=== PATIENT | male | born 1985 | race African-American/Black ===

== ENCOUNTER 2016-11-27 14:13 | Inpatient (IN) | payer MEDICARE, OTHER ==
[~2016-11-27] VITALS: Ht 180.3 cm; Wt 52.1 kg
[~2016-11-27 14:13] MED LIST: ATOV5SUS; BACI500O9 TOP; BACT800T5 PO; LEVE500 PO; LOTR15T TOP; MIRTA15 PO; PYRI25TA11 PO; REYA300C PO; RITO100 PO; THERTAB56; TRUVTAB2 PO; VALT1TAB26 PO
[2016-11-27 14:18] VITALS: BP 125/71; PULSE 122; RESP 20; TEMP 99.6; O2SAT 94
[2016-11-27] MEDS ORDERED: SODIUM CHLOR 0.9% 1000 ML INJ 1,000 ML IV ONE (14:32)
--- NOTE | 2016-11-27 14:35 | PD ---
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 Per EMS. Concerned after initial seizure this patient is a history of these however after the second one family became concerned and called EMS. Patient was found to be post ictal and altered by paramedics. Patient reportedly had fecal and urinary incontinence with seizure. Patient continues to be altered and not answering questions. Will respond to painful stimuli and is moving all extremities. Due to patient's altered mental status H&P is very limited. PFSH Past Medical History Medical History: Unable to Obtain Arthritis: Yes Bipolar Disorder: Yes Anxiety: No Depression: No Cancer: No Cardiovascular Problems: No Endocrine: No Gastrointestinal Disorders: Yes GERD: Yes Genitourinary: No Immune Disorder: Yes (HIV) Musculoskeletal: Yes Neurologic: Yes Psychiatric: Yes Reproductive: Yes Respiratory: No Seizures: Yes Past Surgical History Surgical History: Unable to Obtain Social History Alcohol Use: No Tobacco Use: Yes Substance Use: Yes (MARIJUANA,COCAINE) Allergies-Medications (Allergen,Severity, Reaction): Coded Allergies: No Known Allergies (Unverified , 03/18/13) Reported Meds & Prescriptions Reported Meds & Active Scripts Active Reported Thera (Multiple Vitamin) Tab Bactrim DS (Sulfamethoxazole-Trimethoprim DS) 1 Tab Tab 1 Tab PO BID Atovaquone 750 Mg/5 Ml Karla Bacitracin 500 Mg/Gm Oin 1 Applic TOP BID TO AFFECTED AREA (S) Lotrisone Cream (Betamethasone/Clotrimazole) 15 Gm Cr 1 Applic TOP BID Daraprim (Pyrimethamine) 25 Mg Tab 50 Mg PO DAILY Keppra (Levetriacetam) 500 Mg Tab 500 Mg PO BID Norvir (Ritonavir) 100 Mg Cap 100 Mg PO DAILY Mirtazapine 15 Mg Tab 15 Mg PO HS Reyataz 300 mg Cap (Atazanavir) 300 Mg Cap 300 Mg PO DAILY Truvada (Emtricitabine/Tenofovir) Tab 1 Tab PO DAILY Valtrex (Valacyclovir HCl) 1 Gm Tab 1 Gm PO DAILY Review of Systems ROS Limitations: Altered Mental Status Except as stated in HPI: all other systems reviewed are Neg Physical Exam Exam Limitations: Altered Mental Status Narrative GENERAL: Well-developed, well nourished, in no acute distress, and non-ill appearing. SKIN: Focused skin assessment warm and dry. HEAD: Atraumatic. Normocephalic. EYES: Pupils equal and round and reactive to light. EOMI. No scleral icterus. No injection or drainage. ENT: No nasal bleeding or discharge. Mucous membranes pink and moist. Patient would not open his mouth, but there is no obvious bleeding from the mouth indicating a type of bleeding during the seizure. NECK: Trachea midline. No JVD. Supple. No nuclear rigidity. CARDIOVASCULAR: Regular rate and rhythm. No murmur appreciated. RESPIRATORY: No accessory muscle use. No respiratory distress. Clear to auscultation. Breath sounds equal bilaterally. GASTROINTESTINAL: Abdomen soft, non-tender, nondistended. Hepatic and splenic margins not palpable. Normal bowel sounds 4. No pulsatile mass. MUSCULOSKELETAL: No obvious deformities. No clubbing. No cyanosis. No edema. Full range of motion. NEUROLOGICAL: Awake. No obvious cranial nerve deficits. Motor grossly within normal limits. Data Data Last Documented VS Vital Signs Date Time Temp Pulse Resp B/P Pulse Ox O2 Delivery O2 Flow Rate FiO2 11/27/16 14:18 99.6 122 20 125/71 94 Orders Complete Blood Count With Diff (11/27/16 14:32) Basic Metabolic Panel (Bmp) (11/27/16 14:32) Drug Screen, Random Urine (11/27/16 14:32) Ct Brain W/O Iv Contrast(Rout) (11/27/16 ) Blood Glucose (11/27/16 14:32) Ecg Monitoring (11/27/16 14:32) Iv Access Insert/Monitor (11/27/16 14:32) Oximetry (11/27/16 14:32) Sodium Chlor 0.9% 1000 Ml Inj (Ns 1000 M (11/27/16 14:32) Sodium Chloride 0.9% Flush (Ns Flush) (11/27/16 14:45) Lorazepam Inj (Ativan Inj) (11/27/16 14:45) Vital Signs (Adult) SARAH.Q4H (11/27/16 18:25) ^ Seizure Precautions (11/27/16 18:25) Lorazepam Inj (Ativan Inj) (11/27/16 18:30) Neuro Checks . ORDERED (11/27/16 18:25) Consult Neurology (11/27/16 ) Diet Npo (11/27/16 Dinner) Sodium Chlor 0.9% 1000 Ml Inj (Ns 1000 M (11/27/16 18:30) Admit Order (Ed Use Only) (11/27/16 18:28) Labs Laboratory Tests Test 11/27/16 14:00 White Blood Count 12.3 TH/MM3 Red Blood Count 4.71 MIL/MM3 Hemoglobin 13.7 GM/DL Hematocrit 41.1 % Mean Corpuscular Volume 87.2 FL Mean Corpuscular Hemoglobin 29.2 PG Mean Corpuscular Hemoglobin 33.4 % Concent Red Cell Distribution Width 15.0 % Platelet Count 293 TH/MM3 Mean Platelet Volume 9.0 FL Neutrophils (%) (Auto) 88.7 % Lymphocytes (%) (Auto) 4.5 % Monocytes (%) (Auto) 6.6 % Eosinophils (%) (Auto) 0.1 % Basophils (%) (Auto) 0.1 % Neutrophils # (Auto) 10.9 TH/MM3 Lymphocytes # (Auto) 0.5 TH/MM3 Monocytes # (Auto) 0.8 TH/MM3 Eosinophils # (Auto) 0.0 TH/MM3 Basophils # (Auto) 0.0 TH/MM3 CBC Comment DIFF FINAL Differential Comment Sodium Level 141 MEQ/L Potassium Level 3.8 MEQ/L Chloride Level 107 MEQ/L Carbon Dioxide Level 23.3 MEQ/L Anion Gap 11 MEQ/L Blood Urea Nitrogen 7 MG/DL Creatinine 1.39 MG/DL Estimat Glomerular Filtration 73 ML/MIN Rate Random Glucose 90 MG/DL Calcium Level 9.5 MG/DL MDM Medical Decision Making Medical Screen Exam Complete: Yes Emergency Medical Condition: Yes Interpretation(s) Head CT read by the radiologist shows: No acute abnormality. Differential Diagnosis Seizure, worsening vasogenic edema, electrolyte abnormality, anemia, dehydration , other Narrative Course Patient rectal temperature found to be 99.6. Patient Is in the Mid 90s on the Monitor and Continues Moving around the bed. After examining patient, discussed patient with Dr. Webb who recommends checking CBC, BMP, CT of the head , and giving 2mg of Ativan. 1535 patient's partner now at bedside reports patient had first seizure today around 10:00 AM. States that it after the seizure he gave the patient his seizure medication and walk to the bathroom. Partner reports approximately 40 minutes later patient had a second seizure. Patient reportedly had 2 additional seizure today for a total of 4 seizures today. Partner reports patient is acting normally acts after seizure states he is moving around and not being responsive. Partner states that this typically just resolves with time. Partner was just concerned secondary to the number of seizures with patient had today and is the reason he called EMS. Denies patient falling, hitting his head, or vomiting. Reports patient has been compliant with his medication unlike last year when he had not been compliant with his medication regimen. Denies any known fevers or the patient complaining of anything out of the ordinary or acting although ordinary recently. Partner is uncertain of patient's current neurologist. 1800. Patient resting comfortably in bed sleeping. In no acute distress. Vital signs are stable. Upon awakening patient still somewhat disoriented. Discussed patient with Dr. Webb who recommends having patient admitted for intractable seizure. Call was placed to hospitalist for admission. Physician Communication Physician Communication [id number] Domingo, who is agreeable to admit the patient. Diagnosis Primary Impression: Intractable seizures Additional Impression: Altered mental status Qualified Code: R41.82 - Altered mental status, unspecified altered mental status type Admitting Information Admitting Physician Requests: Observation Condition: Stable Musa Tan November 27, 2016 14:35
[2016-11-27] MEDS ORDERED: LORazepam 2 MG/ML VIAL IVS ONE (14:45)
[2016-11-27] MEDS ORDERED: SODIUM CHLORIDE 0.9% FLUSH 10 ML FLUSH IVF PRN (14:45)
[2016-11-27 15:49] LABS: AUTOMATED NEUTROPHIL # 10.9 TH/MM3 (1.8-7.7); BASOPHIL % 0.1 % (0.0-2.0); EOSINOPHIL % 0.1 % (0.0-4.0); HEMATOCRIT 41.1 % (39.0-51.0); HEMO FLAGS DIFF FINAL; LYMPH % 4.5 % (9.0-44.0); LYMPHOCYTE # 0.5 TH/MM3 (1.0-4.8); MEAN CELL VOLUME 87.2 FL (80.0-100.0); MEAN CORPUSCULAR HEMOGLOBIN 29.2 PG (27.0-34.0); MEAN CORPUSCULAR HGB CONC 33.4 % (32.0-36.0); MONO % 6.6 % (0.0-8.0); NEUT % 88.7 % (16.0-70.0); PLATELET COUNT 293 TH/MM3 (150-450); RED BLOOD COUNT 4.71 MIL/MM3 (4.50-5.90); WHITE BLOOD COUNT 12.3 TH/MM3 (4.0-11.0)
[2016-11-27 16:28] LABS: BICARBONATE 23.3 MEQ/L (21.0-32.0); POTASSIUM 3.8 MEQ/L (3.5-5.1)
--- NOTE | 2016-11-27 17:55 | RADRPT ---
EXAM DATE/TIME: 11/27/2016 17:32 [facility] COMPARISON: CT BRAIN W/O CONTRAST, September 19, 2015, 0:25. INDICATIONS : Seizure; altered mental status. RADIATION DOSE: 56.35 CTDIvol (mGy) MEDICAL HISTORY : HIV. Seizures. SURGICAL HISTORY : None. ENCOUNTER: Initial ACUITY: 1 day PAIN SCALE: Non-responsive LOCATION: cranial TECHNIQUE: Multiple contiguous axial images were obtained of the head. Using automated exposure control and adj ustment of the mA and/or kV according to patient size, radiation dose was kept as low as reasonably a chievable to obtain optimal diagnostic quality images. FINDINGS: CEREBRUM: The ventricles are normal for age. No evidence of midline shift, mass lesion, hemorrhage or acute in farction. No extra-axial fluid collections are seen. Scattered calcifications in the sulci and adjac ent to the falx are unchanged. POSTERIOR FOSSA: The cerebellum and brainstem are intact. The 4th ventricle is midline. The cerebellopontine angle i s unremarkable. EXTRACRANIAL: The visualized portion of the orbits is intact. SKULL: The calvaria is intact. No evidence of skull fracture. CONCLUSION: No acute abnormality. Chema Archibald MD on November 27, 2016 at 17:52 Board Certified Radiologist. This report was verified electronically.
[2016-11-27 18:00] VITALS: BP 100/78; PULSE 107; RESP 15; O2SAT 100
[2016-11-27] MEDS ORDERED: LORazepam 2 MG/ML VIAL IV PUSH PRN (18:30)
[2016-11-27] MEDS ORDERED: LAMI1TAB8 PO (19:40)
[2016-11-27] MEDS ORDERED: MIRTA15 PO (19:40)
[2016-11-27] MEDS ORDERED: LEUC25TA PO (19:40)
[2016-11-27] MEDS ORDERED: ACYC800T PO (19:40)
[2016-11-27] MEDS ORDERED: KEPP10002 PO ×2 (19:40)
[2016-11-27] MEDS ORDERED: BACT800T5 PO (19:40)
[2016-11-27] MEDS ORDERED: ERGO1CAP10 PO (19:40)
[2016-11-27] MEDS ORDERED: DARU1TAB2 PO (19:40)
[2016-11-27] MEDS ORDERED: DOLU1TAB PO (19:40)
[2016-11-27 20:00] VITALS: BP 108/58; PULSE 51; RESP 16; O2SAT 97
[2016-11-27 20:17] LABS: AMPHETAMINE, URINE NEG (NEG); BARBITURATES, URINE NEG (NEG); COCAINE, URINE POS (NEG)
[2016-11-27] MEDS: SODIUM CHLOR 0.9% 1000 ML INJ 1,000 ML IV SCH (20:22)
[2016-11-27 20:55] VITALS: PULSE 51; RESP 18; TEMP 99; O2SAT 99
[2016-11-27 21:30] VITALS: BP 95/58; PULSE 58
[2016-11-27] MEDS ORDERED: LORazepam 2 MG/ML VIAL IV PUSH ONE (21:30)
[2016-11-28] VITALS (9 sets, daily range): BP systolic 105–118; BP diastolic 55–66; PULSE 52–77; RESP 16–18; TEMP 97.2–98.8; O2SAT 97–100
[2016-11-28] MEDS ORDERED: PANTOPRAZOLE SODIUM 40 MG VIAL IV PUSH ONE (03:15)
--- NOTE | 2016-11-28 03:32 | RADRPT ---
EXAM DATE/TIME: 11/28/2016 03:20 [facility] COMPARISON: No previous studies available for comparison. INDICATIONS : Fall. Right shoulder pain. MEDICAL HISTORY : None. SURGICAL HISTORY : None. ENCOUNTER: Initial ACUITY: 1 day PAIN SCORE: 9/10 LOCATION: Right scapular FINDINGS: Single reexamination demonstrates projection of the humeral head towards the lower aspect of the thania oid and possibility of anterior dislocation should be entertained. There is no fracture. CONCLUSION: Limited examination as above and anterior shoulder dislocation should be entertained clinical correla tion is recommended. Jay Richard MD on November 28, 2016 at 3:29 Board Certified Radiologist. This report was verified electronically.
[2016-11-28] MEDS: SODIUM CHLOR 0.9% 1000 ML INJ 1,000 ML IV SCH ×2 (04:05→13:03)
--- NOTE | 2016-11-28 06:29 | RADRPT ---
EXAM DATE/TIME: 11/28/2016 06:10 [facility] COMPARISON: SHOULDER RIGHT (1VW), November 28, 2016, 3:20. INDICATIONS : Right shoulder pain; dislocation. RADIATION DOSE: 12.06 CTDIvol (mGy) MEDICAL HISTORY : Seizures. Gastroesophageal reflux disease. HIV. SURGICAL HISTORY : None. ENCOUNTER: Initial ACUITY: 1 day PAIN SCALE: Non-responsive LOCATION: Right shoulder TECHNIQUE: Volumetric scanning of the shoulder was performed. Using automated exposure control and adjustment o f the mA and/or kV according to patient size, radiation dose was kept as low as reasonably achievable to obtain optimal diagnostic quality images. FINDINGS: Previously seen right anterior shoulder dislocation has been reduced. Moderate joint effusion is seen. There is a fracture of the anterior-inferior glenoid with avulsed fragments. CONCLUSION: Reduction of previously seen dislocation with fractures of the anterior-inferior glenoid with avulsed fragments. Jay Richard MD on November 28, 2016 at 6:26 Board Certified Radiologist. This report was verified electronically.
[2016-11-28] MEDS ORDERED: NALOXONE HCL 0.4 MG/ML AMP IV PRN (07:30)
[2016-11-28] MEDS ORDERED: ONDANSETRON HCL 4 MG/2 ML VIAL IVP PRN (07:30)
[2016-11-28] MEDS ORDERED: MORPHINE SULFATE 4 MG/ML INJ IV PRN (07:30)
[2016-11-28] MEDS ORDERED: ACETAMINOPHEN/HYDROcodone 325 MG/7.5 MG TAB PO PRN (07:30)
[2016-11-28] MEDS ORDERED: ACETAMINOPHEN 325 MG TAB PO PRN ×2 (07:30)
[2016-11-28] MEDS ORDERED: BISACODYL 10 MG SUPP RECTAL PRN (07:30)
[2016-11-28] MEDS ORDERED: SODIUM CHLORIDE 0.9% FLUSH 10 ML FLUSH IV FLUSH PRN (07:30)
--- NOTE | 2016-11-28 07:35 | HHI.HP ---
HPI Service [facility] Primary Care Physician Renaldo Gonzalez MD Admission Diagnosis intractable seizures, altered mental status Diagnoses: Chief Complaint: seizures Travel History International Travel<30 Days: No Contact w/Intl Traveler <30 Da: No Traveled to Known Affected Are: No History of Present Illness Written by Leta Fay, acting as scribe for Dr. Davila on 11/28/16 at 07: 44. 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 The patient is currently drowsy, extremely poor historian, only nodding yes/no to some questions, does not participate in conversation. The patient's partner is at bedside and assists with the history. He states that at baseline the patient does not communicate. Partner reports the patient has been compliant with his medications recently, however yesterday around 10 AM the patient had a seizure. He was given his morning seizure medications, and ambulated to the restroom, then 40 minutes later had a second seizure. Later on the day the patient had additional two seizures. The partner reports tonic- clonic movements. He denies any fall or hitting his head. Patient was found to have a right shoulder dislocation upon arrival. The patient's partner states this happens every time he has a seizure due to the violent shaking. The patient and the partner did not report any recent fevers, cough, or illness. The patient denies any headache, dizziness, lightheadedness, or any other medical complaints. The patient sees Dr. Gonzalez. The patient and his partner are not aware of his last CD4 count. 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 seizures Past Surgical History Lumbar puncture Reported Medications Thera (Multiple Vitamin) Tab Bactrim DS (Sulfamethoxazole-Trimethoprim DS) 1 Tab Tab 1 Tab PO BID Atovaquone 750 Mg/5 Ml Karla Bacitracin 500 Mg/Gm Oin 1 Applic TOP BID TO AFFECTED AREA (S) Lotrisone Cream (Betamethasone/Clotrimazole) 15 Gm Cr 1 Applic TOP BID Daraprim (Pyrimethamine) 25 Mg Tab 50 Mg PO DAILY Keppra (Levetriacetam) 500 Mg Tab 500 Mg PO BID Norvir (Ritonavir) 100 Mg Cap 100 Mg PO DAILY Mirtazapine 15 Mg Tab 15 Mg PO HS Reyataz 300 mg Cap (Atazanavir) 300 Mg Cap 300 Mg PO DAILY Truvada (Emtricitabine/Tenofovir) Tab 1 Tab PO DAILY Valtrex (Valacyclovir HCl) 1 Gm Tab 1 Gm PO DAILY Allergies: Coded Allergies: No Known Allergies (Unverified , 11/27/16) Active Ordered Medications Current Medications Medications (Trade) Dose Ordered Sig/Andrew Route Start Time Stop Time Status Last Admin (NS Flush) 2 ml UNSCH PRN IVF 11/27/16 14:45 11/27/16 14:54 Lorazepam 1 mg 1 mg Q15M PRN IV PUSH 11/27/16 18:30 11/28/16 04:05 (NS 1000 ml Inj) 1,000 ml @ 100 mls/hr Q10H IV 11/27/16 18:30 11/28/16 04:05 Family History Family history of hypertension and diabetes Social History Smokes tobacco 4-5 cigarettes daily Drinks alcohol occasionally Smokes marjiuana, denies any other illicit drug use although UDS +cocaine Homosexual with current partner Physical Exam Vital Signs Vital Signs Date Time Temp Pulse Resp B/P Pulse Ox O2 Delivery O2 Flow Rate FiO2 11/28/16 04:09 97.2 100 105/57 11/28/16 00:51 58 11/27/16 21:30 58 95/58 Automatic Cuff 11/27/16 20:55 99.0 51 18 99 11/27/16 20:00 51 16 108/58 97 Room Air 11/27/16 18:00 107 15 100/78 100 Room Air 11/27/16 14:18 99.6 122 20 125/71 94 Physical Exam GENERAL: Well-nourished, well-developed young AA male patient in NAD. SKIN: Warm and dry. No rash. HEAD: Normocephalic. Atraumatic. EYES: Pupils equal and round. No scleral icterus. No injection or drainage. ENT: No nasal bleeding or discharge. Mucous membranes pink and moist. Patient would not open mouth completely for thorough evaluation however no obvious evidence of thrush. NECK: Supple. Trachea midline. CARDIOVASCULAR: Regular rate and rhythm. S1, S2 noted. No murmur appreciated. RESPIRATORY: No accessory muscle use. Clear to auscultation. Breath sounds equal bilaterally. GASTROINTESTINAL: Abdomen soft, non-tender, nondistended. Normoactive bowel sounds x4. MUSCULOSKELETAL: No obvious deformities. Extremities without clubbing, cyanosis , or edema. Right shoulder edematous. NEUROLOGICAL: Drowsy. No obvious cranial nerve deficits. Motor grossly within normal limits. Nonverbal. Nods head yes/no. PSYCHIATRIC: Appropriate mood and affect; insight and judgment normal. Laboratory Laboratory Tests Test 11/27/16 11/27/16 14:00 19:50 White Blood Count 12.3 Red Blood Count 4.71 Hemoglobin 13.7 Hematocrit 41.1 Mean Corpuscular Volume 87.2 Mean Corpuscular Hemoglobin 29.2 Mean Corpuscular Hemoglobin 33.4 Concent Red Cell Distribution Width 15.0 Platelet Count 293 Mean Platelet Volume 9.0 Neutrophils (%) (Auto) 88.7 Lymphocytes (%) (Auto) 4.5 Monocytes (%) (Auto) 6.6 Eosinophils (%) (Auto) 0.1 Basophils (%) (Auto) 0.1 Neutrophils # (Auto) 10.9 Lymphocytes # (Auto) 0.5 Monocytes # (Auto) 0.8 Eosinophils # (Auto) 0.0 Basophils # (Auto) 0.0 CBC Comment DIFF FINAL Differential Comment Sodium Level 141 Potassium Level 3.8 Chloride Level 107 Carbon Dioxide Level 23.3 Anion Gap 11 Blood Urea Nitrogen 7 Creatinine 1.39 Estimat Glomerular Filtration 73 Rate Random Glucose 90 Calcium Level 9.5 Urine Opiates Screen NEG Urine Barbiturates Screen NEG Urine Amphetamines Screen NEG Urine Benzodiazepines Screen NEG Urine Cocaine Screen POS Urine Cannabinoids Screen POS Result Diagram: 11/27/16 1400 11/27/16 1400 Imaging Shoulder x-ray imaging interpreted by me Last Impressions Upper Extremity CT 11/28/16 0000 Signed Impressions: Service Date/Time: Monday, November 28, 2016 06:10 - CONCLUSION: Reduction of previously seen dislocation with fractures of the anterior-inferior glenoid with avulsed fragments. Jay Richard MD Shoulder X-Ray 11/28/16 0000 Signed Impressions: Service Date/Time: Monday, November 28, 2016 03:20 - CONCLUSION: Limited examination as above and anterior shoulder dislocation should be entertained clinical correlation is recommended. Jay Richard MD Head CT 11/27/16 0000 Signed Impressions: Service Date/Time: Sunday, November 27, 2016 17:32 - CONCLUSION: No acute abnormality. 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 Intractable Seizures: x4. Recently compliant with medications, however UDS + cocaine/cannabinoids. Head CT images reviewed, shows no acute abnormality. Continued patient's Keppra. Seizure precautions. IV Ativan prn seizure. Neurology consulted. Right Shoulder Dislocation/Fracture: xray showed dislocation upon arrival. Orthopedics consulted. Dislocation reduced by Dr. Avalos. R Shoulder CT showed fractures of the anterior-inferior glenoid with avulsed fragments. Ortho recommends nonoperative treatment. Continue sling/swathe. Pain management with Lortab and IV morphine. Counseled regarding narcotics NIRMALA: Cr 1.39, previous ER visit showed Cr 1.6 in September2015, however previously 0.69 in 2012. Give IVF. Repeat BMP and check CK. Avoid nephrotoxins. Mild Rhabdomyolysis: CPK 1864, suspect secondary to seizure. Continue IVF. Repeat CPK in am. Monitor renal function. HIV w/AIDS: unknown recent CD4 count. Patient follows with Dr. Gonzalez as outpatient. Continue patient's home medications. RN to verify Acyclovir dosing. Polysubstance Abuse: counseled on cessation with patient and his partner. All other chronic medical conditions listed above stable, continue home medications as appropriate. DVT Prophylaxis: teds/SCDs Discussed Condition With Patient, Patient's Partner, CDU RN This note was transcribed by lia Fay I, Dr. Rd Davila personally performed the history, physical exam, and medical decision making; and confirmed the accuracy of the information in the transcribed note. Authenticated by Dr. Rd Davila on 11/28/16 at 11:05. Leta Fay PA-C November 28, 2016 07:35 Rd Davila MD November 28, 2016 11:05
[2016-11-28] MEDS ORDERED: DARUNAVIR COBICISTAT PO SCH (09:00)
[2016-11-28] MEDS ORDERED: PYRI25 PO (10:39)
[2016-11-28] MEDS ORDERED: KETOC2%T TOPICAL (10:39)
[2016-11-28] MEDS ORDERED: SULF500T PO (10:39)
[2016-11-28] MEDS ORDERED: THERTAB56 PO (10:39)
[2016-11-28 10:49] LABS: BASOPHIL % 0.6 % (0.0-2.0); EOSINOPHIL % 0.2 % (0.0-4.0); HEMATOCRIT 40.8 % (39.0-51.0); HEMO FLAGS DIFF FINAL; LYMPH % 12.8 % (9.0-44.0); MEAN CELL VOLUME 87.2 FL (80.0-100.0); MEAN CORPUSCULAR HEMOGLOBIN 29.1 PG (27.0-34.0); MEAN CORPUSCULAR HGB CONC 33.4 % (32.0-36.0); NEUT % 75.4 % (16.0-70.0); PLATELET COUNT 255 TH/MM3 (150-450); RED BLOOD COUNT 4.68 MIL/MM3 (4.50-5.90); RED CELL DISTRIBUTION WIDTH 14.5 % (11.6-17.2); WHITE BLOOD COUNT 7.9 TH/MM3 (4.0-11.0)
[2016-11-28] MEDS ORDERED: ERGOCALCIFEROL (VIT D2) 50,000 UNIT CAP PO SCH (11:15)
[2016-11-28 11:38] LABS: ALKALINE PHOSPHATASE 102 U/L (45-117); ALT (GPT) 23 U/L (12-78); ANION GAP 9 MEQ/L (5-15); AST (GOT) 51 U/L (15-37); BICARBONATE 24.5 MEQ/L (21.0-32.0); BLOOD UREA NITROGEN 5 MG/DL (7-18); CHLORIDE 106 MEQ/L (98-107); CREATINE KINASE 1864 U/L (39-308); GLOMERULAR FILTRATION RATE 106 ML/MIN (>89); MAGNESIUM 2.3 MG/DL (1.5-2.5); POTASSIUM 3.8 MEQ/L (3.5-5.1); SODIUM (NA) 139 MEQ/L (136-145); TOTAL BILIRUBIN ADULT 0.4 MG/DL (0.2-1.0)
[2016-11-28] MEDS: SODIUM CHLORIDE 0.9% FLUSH 10 ML FLUSH IV FLUSH SCH ×2 (11:50→21:44)
[2016-11-28] MEDS: DOLUTEGRAVIR SODIUM 50 MG TAB PO SCH ×2 (11:50→21:47)
[2016-11-28] MEDS: levETIRAcetam 500 MG TAB PO SCH ×2 (11:51→21:44)
[2016-11-28] MEDS: SULFAMETHOXAZOLE-TRIMETHOPRIM DS 800-160 MG TAB PO SCH (11:51)
--- NOTE | 2016-11-28 11:56 | MB ---
cc: OLINDA PALAFOX M.D. DATE OF CONSULTATION 11/28/2016 IDENTIFYING DATA He is a 31-year-old seen in neurological consultation. HISTORY OF PRESENT ILLNESS Reportedly he had four seizures yesterday. He does have a history of seizure disorder. He might be taking Keppra, a total of 3000 mg a day, though it is not quite clear. I spoke to the RN. I reviewed the chart. 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 There is a history of some right temporal lobe edema but this is not present now and a prior MRI a reported from March 2013 showed some right occipital cortical increased density which was not seen on the CT scan. The current CT shows some calcifications. The patient is a poor historian, poorly cooperative and his partner at the bedside actually was uncooperative and initially asked me to look at his chart as he already had given the medication list as I was interested into further looking into the exact Keppra dose he has been taking. The patient is mumbling, nodding and follows some commands and moves four extremities. The right shoulder is braced and the pupils were equal and reactive. The reflexes were present, relatively brisk in the lower extremities and plantar response probably flexor, although he withdrew. ANCILLARY DATA CBC with white count 7.9, hemoglobin 13.6, platelets 255 and yesterday white count was 12.3. Chemistry yesterday with a creatinine of 1.39, otherwise normal basic chemistry, normal calcium. Urine toxicology positive for cocaine and cannabinoids; this is from yesterday. ASSESSMENT 1. Multiple seizures yesterday, reported total of four seizures reported as grand mal, according to what I can gather. Reportedly he takes Keppra and unclear if he takes a total of 3000 or 5000 mg a day. 2. Polysubstance abuse. Cocaine present in the urine toxicology. 3. HIV/AIDS RECOMMENDATIONS 1. The Keppra is being resumed and I will check a Keppra level on him. 2. An EEG will be obtained. 3. I will order an MRI brain. 4. I will follow the neurological course. Thank you for asking us to assist in his care. MD BOBBI Spence/SSB /11:14 AM /11:48 AM
[2016-11-28 12:00] LABS: CKMB 5.2 NG/ML (0.5-3.6)
[2016-11-28] MEDS ORDERED: SULFADIAZINE PO SCH (12:00)
[2016-11-28] MEDS: ACYCLOVIR 800 MG TAB PO SCH (12:59)
--- NOTE | 2016-11-28 14:18 | MB ---
cc: ALEISHA SILVA M.D. DATE OF CONSULTATION: 11/28/2016 REASON FOR CONSULTATION Right shoulder pain, status post seizure. HISTORY OF PRESENT ILLNESS A 31-year-old male with history of CARGO ROUTER toxoplasmosis, seizure disorder, syphilis, genital condyloma, HIV, AIDS, medical noncompliance, polysubstance abuse, presented to [facility] with 1 day history of multiple seizures. He is a poor historian. Of note, he was complaining of right shoulder pain. X-rays were questionable of the right shoulder whether or not he had a dislocation. I was contacted and I recommended CT scan. CT scan examination has been performed that shows no evidence of dislocation. He has some mild calcification on the inferior aspect of the glenoid which may be consistent with prior dislocation, age indeterminate. The patient is currently very combative, noncompliant. The hospital security is at the bedside because the patient became violent. He currently has a sling on the right shoulder and left arm is currently in restraints. The patient will not answer specific questions. PAST MEDICAL HISTORY 1. Positive for CARGO ROUTER toxoplasmosis. 2. Syphilis. 3. Genital condyloma. 4. HIV. 5. AIDS. 6. Polysubstance abuse. 7. Seizure disorder. MEDICATIONS Include: 1. Bactrim. 2. Atovaquone. 3. Daraprim. 4. Keppra. 5. Norvir. 6. Mirtazapine. 7. Rayataz. 8. Truvada. 9. Valtrex. ALLERGIES NO KNOWN DRUG ALLERGIES. FAMILY HISTORY Positive for hypertension, diabetes. SOCIAL HISTORY He smokes half-pack a day. He occasionally drinks alcohol. He smokes marijuana. He denies other drugs, although his urine screen is positive for cocaine. Homosexual and has a significant other partner. PHYSICAL EXAMINATION VITAL SIGNS: Temperature is 99, pulse is 100, respirations 20, blood pressure 120/70. GENERAL: The patient is a well-nourished male, lying in bed. He is awake. He seems somewhat combative. He will not specifically converse and will not follow commands. SKIN: The skin is warm and dry. HEENT: Normocephalic, atraumatic. Pupils are round and reactive to light. NECK: Neck is supple. LUNGS: Clear. HEART: Regular rate and rhythm. ABDOMEN: Soft, nontender. EXTREMITIES: The right shoulder shows the skin is intact. He has mild tenderness along the anterior aspect. No crepitation. 2+ radial pulse. He can flex his digits distally. LABORATORY DATA White blood cell count is 12.3, hemoglobin 13, hematocrit 41, creatinine 1.39. IMAGING STUDIES CT scan right shoulder shows no evidence of dislocation. There is some calcification along the anterior aspect which may be associated with a previous dislocation and avulsion fragments off the anterior inferior glenoid. IMPRESSION A 31-year-old male with multiple medical comorbidities including HIV, AIDS, seizure disorder, toxoplasmosis, polysubstance abuse who presents with history of recent seizures and probable recent right shoulder dislocation. Currently his shoulder is not dislocated. PLAN Discussed the above with the patient. I recommend sling and swathe immobilization for his right shoulder for at least 2 weeks time. I have tried to discuss with him position of instability to avoid. MD JENIFER Swenson/BRIDGET /1:49 PM /2:01 PM
[2016-11-28] MEDS ORDERED: LORazepam 2 MG/ML VIAL IV PUSH ONE ×2 (15:00→15:30)
[2016-11-28] MEDS ORDERED: LORazepam 2 MG/ML VIAL IV PUSH PRN ×2 (15:00→21:00)
[2016-11-28] MEDS ORDERED: GADODIAMIDE PF 287 MG/ML 5 ML VIAL (for RAD MRI) IV ONE (20:41)
[2016-11-28] MEDS: MIRTAZAPINE 15 MG TAB PO SCH (21:44)
--- NOTE | 2016-11-28 22:40 | RADRPT ---
EXAM DATE/TIME: 11/28/2016 20:12 [place] COMPARISON: No previous studies available for comparison. INDICATIONS : Seizures. CONTRAST: 15 cc Omniscan (gadodiamide) IV MEDICAL HISTORY : Seizures. HIV. SURGICAL HISTORY : None. ENCOUNTER: Initial ACUITY: 3 day PAIN SCORE: 0/10 LOCATION: Head TECHNIQUE: Multiplanar, multisequence MRI of the brain was performed both prior to and following the administrat ion of paramagnetic contrast. FINDINGS: There is some atrophic changes and white matter signal abnormality in the right occipital lobe likely related to residual effects of a prior cerebritis or traumatic injury. On the MR from 2012 this area demonstrated some cerebral edema. No mass effect or shift. No hydrocephalus. No recent infarction. No abnormal enhancing lesions. No ab normal extra-axial fluid. CONCLUSION: 1. Mild atrophy and white matter change in the right occipital lobe likely related to a prior injury or cerebritis. This is near an area of focal abnormality seen in 2013. Remainder of the brain unremar kable. No abnormal enhancement. Moody Ramos MD on November 28, 2016 at 22:33 Board Certified Radiologist. This report was verified electronically.
[2016-11-29] MEDS: SODIUM CHLOR 0.9% 1000 ML INJ 1,000 ML IV SCH ×3 (00:23→20:00)
[2016-11-29 00:58] VITALS: BP 113/72; PULSE 50; RESP 20; TEMP 98.4; O2SAT 100
[2016-11-29 05:39] VITALS: BP 106/61; PULSE 71; RESP 20; TEMP 98.3; O2SAT 99
--- NOTE | 2016-11-29 07:09 | HHI.PR ---
Review/Management Daily Summary seen this early am spoke to night RN no seizure and did well overnight asleep and poorly awakened this am mri brain stable keppra level pending eeg pending i will be out of town as of tomorrow and i will ask one of my partners to follow him Subjective Subjective Comments No acute events reported No headache No chest pain No dyspnea Active Medications Current Medications Medications (Trade) Dose Ordered Sig/Andrew Route Start Time Stop Time Status Last Admin (NS Flush) 2 ml UNSCH PRN IVF 11/27/16 14:45 11/27/16 14:54 Lorazepam 1 mg 1 mg Q15M PRN IV PUSH 11/27/16 18:30 11/28/16 04:05 (NS 1000 ml Inj) 1,000 ml @ 100 mls/hr Q10H IV 11/27/16 18:30 11/29/16 00:23 (NS Flush) 2 ml UNSCH PRN IV FLUSH 11/28/16 07:30 (NS Flush) 2 ml BID IV FLUSH 11/28/16 09:00 11/28/16 21:44 (Tylenol) 650 mg Q4H PRN PO 11/28/16 07:30 (Zofran Inj) 4 mg Q6H PRN IVP 11/28/16 07:30 (Dulcolax Supp) 10 mg DAILY PRN RECTAL 11/28/16 07:30 (Tylenol) 650 mg Q6H PRN PO 11/28/16 07:30 (Seagraves 7.5-325 Mg) 1 tab Q4H PRN PO 11/28/16 07:30 (Morphine Inj) 1 mg Q3H PRN IV 11/28/16 07:30 (Narcan Inj) 0.4 mg UNSCH PRN IV 11/28/16 07:30 (Epivir) 300 mg DAILY PO 11/28/16 09:00 11/28/16 11:50 (Keppra) 1,000 mg HS PO 11/28/16 21:00 11/28/16 21:44 (Keppra) 2,000 mg DAILY PO 11/28/16 11:30 11/28/16 11:51 (Remeron) 15 mg HS PO 11/28/16 21:00 11/28/16 21:44 (Bactrim Ds 800-160 Mg) 1 tab DAILY PO 11/28/16 09:00 11/28/16 11:51 Patient Own Medication PT OWN MED: Darunavir-Cobicistat (Prezcobix) 800/... DAILY PO 11/28/16 09:00 Hold (Wellcovorin) 25 mg DAILY PO 11/29/16 09:00 (Zovirax) 800 mg DAILY PO 11/28/16 11:15 11/28/16 12:59 Patient Own Medication PT OWN MED: Sulfadiazine 1,000... DAILY PO 11/28/16 12:00 Hold (Ativan Inj) 0.5 mg Q6H PRN IV PUSH 11/28/16 21:00 Allergies Allergies Coded Allergies No Known Allergies (Unverified11/27/16) Exam I&O / VS 11/28/16 11/28/16 11/29/16 15:00 23:00 07:00 Intake Total 700 ml Balance 700 ml Intake IV Total 700 ml # Voids 1 1 # Bowel Movements 1 Vital Signs Date Time Temp Pulse Resp B/P Pulse Ox O2 Delivery O2 Flow Rate FiO2 11/29/16 05:39 98.3 71 20 106/61 99 11/29/16 00:58 98.4 50 20 113/72 100 11/28/16 20:55 97.9 57 18 118/64 100 11/28/16 20:10 56 11/28/16 20:00 99 11/28/16 18:30 52 11/28/16 15:38 98.8 77 18 108/66 97 11/28/16 12:06 98.2 69 16 116/62 100 11/28/16 07:59 97.9 70 16 106/55 100 Objective Radiology Results Last 48 hours Impressions Upper Extremity CT 11/28/16 0000 Signed Impressions: Service Date/Time: Monday, November 28, 2016 06:10 - CONCLUSION: Reduction of previously seen dislocation with fractures of the anterior-inferior glenoid with avulsed fragments. Jay Richard MD Shoulder X-Ray 11/28/16 0000 Signed Impressions: Service Date/Time: Monday, November 28, 2016 03:20 - CONCLUSION: Limited examination as above and anterior shoulder dislocation should be entertained clinical correlation is recommended. Jay Richard MD Brain MRI 11/28/16 0000 Signed Impressions: Service Date/Time: Monday, November 28, 2016 20:12 - CONCLUSION: 1. Mild atrophy and white matter change in the right occipital lobe likely related to a prior injury or cerebritis. This is near an area of focal abnormality seen in 2012. Remainder of the brain unremarkable. No abnormal enhancement. Moody Ramos MD Micro and Labs Laboratory Tests Test 11/28/16 10:29 White Blood Count 7.9 Red Blood Count 4.68 Hemoglobin 13.6 Hematocrit 40.8 Mean Corpuscular Volume 87.2 Mean Corpuscular Hemoglobin 29.1 Mean Corpuscular Hemoglobin 33.4 Concent Red Cell Distribution Width 14.5 Platelet Count 255 Mean Platelet Volume 8.2 Neutrophils (%) (Auto) 75.4 Lymphocytes (%) (Auto) 12.8 Monocytes (%) (Auto) 11.0 Eosinophils (%) (Auto) 0.2 Basophils (%) (Auto) 0.6 Neutrophils # (Auto) 6.0 Lymphocytes # (Auto) 1.0 Monocytes # (Auto) 0.9 Eosinophils # (Auto) 0.0 Basophils # (Auto) 0.0 CBC Comment DIFF FINAL Differential Comment Sodium Level 139 Potassium Level 3.8 Chloride Level 106 Carbon Dioxide Level 24.5 Anion Gap 9 Blood Urea Nitrogen 5 Creatinine 1.00 Estimat Glomerular Filtration 106 Rate Random Glucose 83 Calcium Level 9.1 Magnesium Level 2.3 Total Bilirubin 0.4 Aspartate Amino Transf 51 (AST/SGOT) Alanine Aminotransferase 23 (ALT/SGPT) Alkaline Phosphatase 102 Total Creatine Kinase 1864 Creatine Kinase MB 5.2 Creatine Kinase MB % 0.3 Total Protein 8.0 Albumin 3.4 Corwin Murrieta MD November 29, 2016 07:09
[2016-11-29 08:59] VITALS: BP 116/71; PULSE 90; RESP 17; TEMP 98.8; O2SAT 100
[2016-11-29] MEDS ORDERED: LEUCOVORIN CALCIUM 5 MG TAB PO SCH (09:00)
[2016-11-29] MEDS: SULFAMETHOXAZOLE-TRIMETHOPRIM DS 800-160 MG TAB PO SCH (10:58)
[2016-11-29] MEDS: ACYCLOVIR 800 MG TAB PO SCH (10:58)
[2016-11-29] MEDS: levETIRAcetam 500 MG TAB PO SCH ×2 (10:58→20:00)
[2016-11-29] MEDS: SODIUM CHLORIDE 0.9% FLUSH 10 ML FLUSH IV FLUSH SCH ×2 (10:59→20:00)
[2016-11-29] MEDS: DOLUTEGRAVIR SODIUM 50 MG TAB PO SCH ×2 (10:59→20:00)
[2016-11-29 11:48] VITALS: BP 104/65; PULSE 83; RESP 17; TEMP 97; O2SAT 99
[2016-11-29 12:31] LABS: BICARBONATE 27.4 MEQ/L (21.0-32.0); POTASSIUM 3.9 MEQ/L (3.5-5.1)
[2016-11-29 12:50] LABS: CKMB 1.9 NG/ML (0.5-3.6)
[2016-11-29] MEDS ORDERED: HYDR-3580 PO (13:52)
--- NOTE | 2016-11-29 13:53 | HHI.DCPOC ---
Discharge Care Plan Diagnosis: (1) Seizure Your Health Problems Are: Difficulty with ADL Exercise Tolerance Goals to Promote Your Health * To prevent worsening of your condition and complications * To maintain your health at the optimal level Directions to Meet Your Goals Take your medications as prescribed Follow your dietary instruction Follow activity as directed Keep your appointments as scheduled Take your immunizations and boosters as scheduled If your symptoms worsen call your PCP, if no PCP go to Urgent Care Center or Emergency Room Smoking is Dangerous to Your Health. Avoid second hand smoke Call the 24-hour hour crisis hotline for domestic abuse at [address] Davila MD November 29, 2016 13:53
--- NOTE | 2016-11-29 14:02 | HHI.PR ---
Objective Vitals Vital Signs Date Time Temp Pulse Resp B/P Pulse Ox O2 Delivery O2 Flow Rate FiO2 11/29/16 11:48 97.0 83 17 104/65 99 11/29/16 08:59 98.8 90 17 116/71 100 11/29/16 05:39 98.3 71 20 106/61 99 11/29/16 00:58 98.4 50 20 113/72 100 11/28/16 20:55 97.9 57 18 118/64 100 11/28/16 20:10 56 11/28/16 20:00 99 11/28/16 18:30 52 11/28/16 15:38 98.8 77 18 108/66 97 I/O 11/28/16 11/28/16 11/28/16 11/29/16 11/29/16 11/29/16 06:59 14:59 22:59 06:59 14:59 22:59 Intake Total 700 ml Balance 700 ml Intake IV Total 700 ml # Voids 3 1 1 # Bowel Movements 2 1 Result Diagram: 11/28/16 1029 11/29/16 1033 Imaging Last Impressions Upper Extremity CT 11/28/16 0000 Signed Impressions: Service Date/Time: Monday, November 28, 2016 06:10 - CONCLUSION: Reduction of previously seen dislocation with fractures of the anterior-inferior glenoid with avulsed fragments. Jay Richard MD Shoulder X-Ray 11/28/16 0000 Signed Impressions: Service Date/Time: Monday, November 28, 2016 03:20 - CONCLUSION: Limited examination as above and anterior shoulder dislocation should be entertained clinical correlation is recommended. Jay Richard MD Brain MRI 11/28/16 0000 Signed Impressions: Service Date/Time: Monday, November 28, 2016 20:12 - CONCLUSION: 1. Mild atrophy and white matter change in the right occipital lobe likely related to a prior injury or cerebritis. This is near an area of focal abnormality seen in 2012. Remainder of the brain unremarkable. No abnormal enhancement. Moody Ramos MD Head CT 11/27/16 0000 Signed Impressions: Service Date/Time: Sunday, November 27, 2016 17:32 - CONCLUSION: No acute abnormality. Chema Archibald MD Objective Remarks GENERAL: Well-nourished, well-developed young AA male patient in NAD. SKIN: Warm and dry. No rash. HEAD: Normocephalic. Atraumatic. EYES: Pupils equal and round. No scleral icterus. No injection or drainage. ENT: No nasal bleeding or discharge. Mucous membranes pink and moist. Patient would not open mouth completely for thorough evaluation however no obvious evidence of thrush. NECK: Supple. Trachea midline. CARDIOVASCULAR: Regular rate and rhythm. S1, S2 noted. No murmur appreciated. RESPIRATORY: No accessory muscle use. Clear to auscultation. Breath sounds equal bilaterally. GASTROINTESTINAL: Abdomen soft, non-tender, nondistended. Normoactive bowel sounds x4. MUSCULOSKELETAL: No obvious deformities. Extremities without clubbing, cyanosis , or edema. Right shoulder edematous. NEUROLOGICAL: Drowsy. No obvious cranial nerve deficits. Motor grossly within normal limits. Nonverbal. Nods head yes/no. PSYCHIATRIC: Appropriate mood and affect; insight and judgment normal. 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 Intractable Seizures: x4. Recently compliant with medications, however UDS + cocaine/cannabinoids. Head CT images reviewed, shows no acute abnormality. Continued patient's Keppra. Seizure precautions. IV Ativan prn seizure. Neurology consulted. Brain MRI stable pending EEG Right Shoulder Dislocation/Fracture: xray showed dislocation upon arrival. Orthopedics consulted. Dislocation reduced by Dr. Avalos. R Shoulder CT showed fractures of the anterior-inferior glenoid with avulsed fragments. Ortho recommends nonoperative treatment. Continue sling/swathe. Pain management with Lortab and IV morphine. Counseled regarding narcotics NIRMALA: Cr 1.39, previous ER visit showed Cr 1.6 in September2015, however previously 0.69 in 2012. Given IVF improved. Avoid nephrotoxins. Mild Rhabdomyolysis: CPK 1864, suspect secondary to seizure. Improving s/p IVF. Monitor renal function. HIV w/AIDS: unknown recent CD4 count. Patient follows with Dr. Gonzalez as outpatient. Continue patient's home medications. Polysubstance Abuse: counseled on cessation with patient and his partner. All other chronic medical conditions listed above stable, continue home medications as appropriate. DVT Prophylaxis: teds/SCDs Discharge Planning Discharge patient to home. Patient has improved significantly earlier than anticipated Condition on discharge: Improved Regular Diet as tolerated Ad Mary activity no driving Rx written: Lortab Follow-up with primary care physician in one week Spent over 30 minutes arranging discharge discussed with patient and RN. dR Davila MD November 29, 2016 14:02
[2016-11-29 16:52] VITALS: BP 90/67; PULSE 94; RESP 17; TEMP 98.4; O2SAT 99
[2016-11-29 20:00] VITALS: BP 124/69; PULSE 60; RESP 20; TEMP 97.1; O2SAT 99
[2016-11-29] MEDS: MIRTAZAPINE 15 MG TAB PO SCH (20:00)
--- NOTE | 2016-11-29 20:53 | MG ---
cc: REBECCA GARCIA MD Sex: M [id number] A 31 year-old, [employer], toxoplasmosis, HIV, substance abuse. Right temporal lobe seizures, bipolar. MEDICATIONS: Keppra Welcavron. Epivir. DESCRIPTION: The record shows symmetric diffuse alpha and beta rhythms. Blink artifact is noted. Photic stimulation is performed without significant posterior driving. No hemisphere asymmetries are seen. No epileptiform or seizure activity is noted. At times he appears to fall asleep with some sleep spindles, other times a 9 Hz 40 microvolt symmetric posterior rhythm is seen. Hyperventilation was performed without significant change in the background. IMPRESSION A normal awake and some sleep EEG, no evidence for focal or diffuse abnormality. MD FREDERIC Waterman/ABNER /8:44 PM /8:49 PM
== END 2016-11-29 21:20 | disposition home or self-care (01) | DRG 100 ==
LOC: NEPE 14:13 → INTOOBSV 18:30 → NEDA 18:30 → OBSVTOIN 18:30 → NEPHCDU 20:50 → OBSVTOIN 11-28 11:43 → NEPHCDU 11-28 15:39 → N05B 11-28 23:59
PROVIDERS: ADMIT Internal Medicine; ATTEND Internal Medicine
DX: G40.919 Epilepsy, unspecified, intractable, without status epilepticus (principal); B20 Human immunodeficiency virus [HIV] disease; N17.9 Acute kidney failure, unspecified; B58.9 Toxoplasmosis, unspecified; M62.82 Rhabdomyolysis; Z91.19 Patient's noncompliance with other medical treatment and regimen; F17.210 Nicotine dependence, cigarettes, uncomplicated; F12.90 Cannabis use, unspecified, uncomplicated; F19.10 Other psychoactive substance abuse, uncomplicated; F14.10 Cocaine abuse, uncomplicated
CPT/HCPCS: 70450; 70553; 73020; 73200; 80048; 80053; 80177; 80307; 82550; 82552; 83735; 85025; 95819; 96361; 96374; A9579; C9113; J2060; J7030